=== PATIENT | female | born 1960 | race Caucasian/White ===

== ENCOUNTER 2017-12-15 17:03 | Emergency (ER) | payer BC ==
--- NOTE | 2017-12-15 18:49 | EDM.PDOC ---
ED HPI GENERAL MEDICAL PROBLEM - General Chief Complaint: Head Injury Stated Complaint: HIGH BP, FELL AND HIT HEAD Time Seen by Provider: 12/15/17 17:49 Source of Information: Reports: Patient, Family History Limitations: Reports: No Limitations - History of Present Illness INITIAL COMMENTS - FREE TEXT/NARRATIVE: 57 y.o.w.f came to the clinic after she fell against a wall while carrying furniture. No LOC but severe pain at her right forehead. No N/V/D or ant other acute medical issues. Pt is on Lisinopril 20 mg daily. She took her meds in am. Pt was seen initially in the clinic and transferred to the ed due to a SBP > 190. 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: Reports: NSAIDS - Related Data Allergies Allergy/AdvReac Type Severity Reaction Status Date / Time Penicillins Allergy Rash Verified 12/15/17 17:54 Home Meds: Home Meds Lisinopril/Hydrochlorothiazide [Lisinopril-Hctz 10-12.5 mg Tab] 1 each PO DAILY 12/15/17 [History] Past Medical History 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: Reports: 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: Musculoskeletal History: Reports: Other (See Below) Other Musculoskeletal History: scoliosis - Past Surgical History HEENT Surgical History: Reports: Tonsillectomy Female Surgical History: Reports: Section Musculoskeletal Surgical History: Reports: Other (See Below) Other Musculoskeletal Surgeries/Procedures:: Rob saúl in back for scoliosis Social & Family History - Tobacco Use Smoking Status *Q: Current Every Day Smoker Years of Tobacco use: 20 Packs/Tins Daily: 0.3 - Caffeine Use Caffeine Use: Reports: Soda - Recreational Drug Use Recreational Drug Use: No ED ROS GENERAL - Review of Systems Review Of Systems: See Below Constitutional: Reports: No Symptoms HEENT: Reports: Other (H/A) Respiratory: Reports: No Symptoms Cardiovascular: Reports: No Symptoms Endocrine: Reports: No Symptoms GI/Abdominal: Reports: No Symptoms : Reports: No Symptoms Musculoskeletal: Reports: Other (headache) Skin: Reports: No Symptoms Neurological: Reports: No Symptoms Psychiatric: Reports: No Symptoms Hematologic/Lymphatic: Reports: No Symptoms Immunologic: Reports: No Symptoms ED EXAM, HEAD INJURY - Physical Exam Exam: See Below Exam Limited By: No Limitations General Appearance: Alert, WD/WN, Mild Distress Head: Normocephalic, Scalp Tenderness Eyes: Bilateral Eye: Normal Inspection Ears: Normal External Exam, Normal Canal Nose: Normal Inspection, Normal Mucousa, No Blood Throat/Mouth: Normal Inspection, Normal Lips, Normal Gums, Normal Voice, No Airway Compromise Neck: Non-Tender, Full Range of Motion, Normal Alignment, Normal Inspection Respiratory: No Respiratory Distress, Lungs Clear, Normal Breath Sounds, No Accessory Muscle Use, Chest Non-Tender Cardiovascular: Normal Peripheral Pulses, Regular Rate, Rhythm, No Edema, No Gallop, No Murmur, No Rub GI/Abdominal Exam: Normal Bowel Sounds, Soft, Non-Tender, No Organomegaly (Female) Exam: Deferred Rectal (Female) Exam: Deferred Back Exam: Normal Inspection, Full Range of Motion Extremities: Normal Inspection, Normal Range of Motion, Non-Tender, No Pedal Edema, Normal Capillary Refill 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 No LOC but severe pain at her right forehead. No N/V/D or ant other acute medical issues. Pt is on Lisinopril 20 mg daily. She took her meds in am. Pt was seen initially in the clinic and transferred to the ed due to a SBP > 190. On arrivel, Her BP was 155/86 RR 17 Puls 74 Pulse ox 97% on RA Temp 36.9 PE: WNWD w f with H/A after a minor trauma. Imaging: CT head: NAD, small foci of hypoattenuation both frontal lobes, possible nonspecific Impression: Hypertension, Tension Headache Tx: ICE, Motrin SALESPERSON PETS AND PET SUPPLIES, Pt will take an extra Lisinopril at home Reexam: Improved BP on D/C 160/67 Plan: D/C with instructions. Last Recorded V/S: Last Vital Signs Temp 36.6 C 12/15/17 17:49 Pulse 73 12/15/17 17:49 Resp 17 12/15/17 17:49 BP 155/88 H 12/15/17 17:49 Pulse Ox 97 12/15/17 17:49 - Orders/Labs/Meds Orders: Active Orders 24 hr Category Date Time Status Cooling Warming Measures [RC] ASDIRECTED Care 12/15/17 17:16 Active Head wo Cont [CT] Stat Exams 12/15/17 17:16 Taken Ice Bag [Ice Therapy] [OM.PC] Routine Oth 12/15/17 17:16 Ordered Departure - Departure Time of Disposition: 18:49 Disposition: Home, Self-Care 01 Condition: Good Clinical Impression: Tension headache, HTN (hypertension) - Discharge Information Instructions: Head Injury, Adult, Hypertension Referrals: Gabbie Torres, [facility] [Primary Care Provider] - Forms: ED Department Discharge Additional Instructions: Please take Motrin for pain, apply ice to the affected area, please take Lisinopril twice daily and see your PMD this for BP check and BPmeds adjustment. Please come back to the ed if your symptoms get worse acutely - My Orders Last 24 Hours: My Active Orders 12/15/17 17:16 Cooling Warming Measures [RC] ASDIRECTED Head wo Cont [CT] Stat Ice Bag [Ice Therapy] [OM.PC] Routine - Assessment/Plan Last 24 Hours: My Active Orders 12/15/17 17:16 Cooling Warming Measures [RC] ASDIRECTED Head wo Cont [CT] Stat Ice Bag [Ice Therapy] [OM.PC] Routine
== END 2017-12-15 19:01 | disposition home or self-care (01) ==
LOC: FB.ED 17:03
DX: G44.209 Tension-type headache, unspecified, not intractable (principal); I10 Essential (primary) hypertension; F17.210 Nicotine dependence, cigarettes, uncomplicated; Z88.0 Allergy status to penicillin
CPT/HCPCS: 70450; 99283

== ENCOUNTER 2020-10-31 19:22 | Emergency (ER) | payer BC ==
[2020-10-31] MEDS ORDERED: Acetaminophen/oxyCODONE 325-5 MG Tab PO ONE (19:23)
[2020-10-31] MEDS ORDERED: Ondansetron 4 MG Tab.DIS PO ONE (19:23)
[2020-10-31] MEDS ORDERED: Sodium Chloride 0.9% 1,000 ML IV ONE (19:38)
[2020-10-31] MEDS ORDERED: Ondansetron 4 MG/2 ML SDV IVPUSH ONE (19:38)
[2020-10-31] MEDS ORDERED: Ketorolac 30 MG/ML SDV IVPUSH ONE (19:38)
--- NOTE | 2020-10-31 19:45 | EDM.PDOC ---
ED HPI GENERAL MEDICAL PROBLEM - General Stated Complaint: KIDNEY STONE Time Seen by Provider: 10/31/20 19:43 Source of Information: Reports: Patient, RN Notes Reviewed History Limitations: Reports: No Limitations - History of Present Illness INITIAL COMMENTS - FREE TEXT/NARRATIVE: Nazia complains of right flank pain x 3 days. Was seen in [place] ED and treated overnight for a kidney stone. 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 GI/Abdominal: Reports: Diarrhea, Vomiting ED EXAM, RENAL/ - Physical Exam Exam: See Below Exam Limited By: No Limitations General Appearance: Alert, WD/WN, No Apparent Distress Respiratory/Chest: No Respiratory Distress Cardiovascular: Normal Peripheral Pulses GI/Abdominal: Normal Bowel Sounds, Soft, Tender (RLQ) Back Exam: Normal Inspection Course - Vital Signs Last Recorded V/S: Last Vital Signs Temp 98.2 F 10/31/20 19:30 Pulse 82 10/31/20 19:30 Resp 18 10/31/20 19:30 BP 141/86 H 10/31/20 19:30 Pulse Ox 98 10/31/20 19:30 - Orders/Labs/Meds Orders: Active Orders 24 hr Category Date Time Status Abdomen Pelvis wo Cont [CT] Stat Exams 10/31/20 20:52 Taken Metoclopramide [Reglan] Med 10/31/20 22:35 Once 10 mg IVPUSH ONETIME ONE Labs: Laboratory Tests 10/31/20 10/31/20 10/31/20 Range/Units 19:50 19:50 21:15 WBC 11.9 H (3.0-10.3) x10-3/uL RBC 4.36 (3.60-5.20) x10(6)uL Hgb 13.5 (11.4-15.5) g/dL Hct 41.0 (34.2-48.2) % MCV 93.9 (76.7-100.5) fL MCH 31.0 (23.9-33.9) pg MCHC 33.0 (31.9-34.8) g/dL RDW 12.7 (12.3-16.5) % Plt Count 238 (151-488) x10(3)uL MPV 8.3 (7.1-12.4) fL Neut % (Auto) 83.0 H (30.8-76.2) % Lymph % (Auto) 10.1 L (18.4-52.1) % Amite % (Auto) 5.5 (4.4-15.7) % Eos % (Auto) 1.0 (0.6-8.1) % Baso % (Auto) 0.4 (0.2-1.5) % Neut # (Auto) 9.8 H (1.5-6.3) x10-3/uL Lymph # (Auto) 1.2 (1.0-4.4) x10-3/uL Amite # (Auto) 0.7 (0.3-1.0) x10-3/uL Eos # (Auto) 0.1 (0.0-0.8) x10-3/uL Baso # (Auto) 0.0 (0.0-0.1) x10-3/uL Sodium 142 (135-145) mmol/L Potassium 3.8 (3.5-5.3) mmol/L Chloride 103 (100-110) mmol/L Carbon Dioxide 25 (21-32) mmol/L BUN 17 (7-18) mg/dL Creatinine 1.2 H (0.55-1.02) mg/dL Est Cr Clr Drug Dosing 47.84 mL/min Estimated GFR (MDRD) 46 L (>60) BUN/Creatinine Ratio 14.2 (9-20) Glucose 94 (80-116) mg/dL Calcium 7.8 L (8.6-10.2) mg/dL Urine Color Yellow (YELLOW) Urine Appearance Clear (CLEAR) Urine pH 5.0 (5.0-6.5) Ur Specific Clarence 1.020 (1.010-1.025) Urine Protein Negative (NEGATIVE) mg/dL Urine Glucose (UA) Normal (NORMAL) mg/dL Urine Ketones 50 H (NEGATIVE) mg/dL Urine Occult Blood Negative (NEGATIVE) Urine Nitrite Negative (NEGATIVE) Urine Bilirubin Negative (NEGATIVE) Urine Urobilinogen Normal (NEGATIVE) mg/dL Ur Leukocyte Esterase Negative (NEGATIVE) Urine RBC 0-5 (0-5) Urine WBC 0-5 (0-5) Ur Squamous Epith Cells Occasional (NS,R,O) Urine Bacteria Rare H (NS) Meds: Medications Discontinued Medications Generic Name Dose Route Start Last Admin Trade Name Freq PRN Reason Stop Dose Admin Hydromorphone HCl 2 mg 10/31/20 20:52 10/31/20 21:15 Hydromorphone 2 Mg/Ml Sdv IVPUSH 10/31/20 20:53 2 mg ONETIME ONE Administration Sodium Chloride 1,000 mls @ 999 mls/hr 10/31/20 19:38 10/31/20 19:45 Normal Saline IV 10/31/20 20:38 999 mls/hr .BOLUS ONE Administration Ketorolac Tromethamine 30 mg 10/31/20 19:38 10/31/20 19:52 Ketorolac 30 Mg/Ml Sdv IVPUSH 10/31/20 19:39 30 mg ONETIME ONE Administration Ondansetron HCl 8 mg 10/31/20 19:38 10/31/20 19:54 Ondansetron 4 Mg/2 Ml Sdv IVPUSH 10/31/20 19:39 8 mg ONETIME ONE Administration Departure - Departure Time of Disposition: 22:36 Disposition: Home, Self-Care 01 Clinical Impression: Kidney stone, Calcium urolithiasis - Discharge Information Referrals: Gabbie Torres NP [Primary Care Provider] - Sepsis Event Note (ED) - Focused Exam Vital Signs: Vital Signs Temp Pulse Resp BP Pulse Ox 10/31/20 19:30 98.2 F 82 18 141/86 H 98 - Problem List & Annotations (1) Calcium urolithiasis SNOMED Code(s): 25972009 Code(s): N20.9 - URINARY CALCULUS, UNSPECIFIED Status: Acute Current Visit: No (2) Colitis SNOMED Code(s): 84108550 Code(s): K52.9 - NONINFECTIVE GASTROENTERITIS AND COLITIS, UNSPECIFIED Status: Acute Current Visit: Yes (3) Kidney stone SNOMED Code(s): 18449212 Code(s): N20.0 - CALCULUS OF KIDNEY Status: Acute Current Visit: Yes - Problem List Review Problem List Initiated/Reviewed/Updated: Yes - My Orders Last 24 Hours: My Active Orders 10/31/20 20:52 Abdomen Pelvis wo Cont [CT] Stat 10/31/20 22:35 Metoclopramide [Reglan] 10 mg IVPUSH ONETIME ONE - Assessment/Plan Last 24 Hours: My Active Orders 10/31/20 20:52 Abdomen Pelvis wo Cont [CT] Stat 10/31/20 22:35 Metoclopramide [Reglan] 10 mg IVPUSH ONETIME ONE Plan: I reviewed her CT from 10/29 that showed a 2 mm kidney stone at the right UPJ,some hydronephrosis.CT was repated today, shwed new stone 2-3 mm in addition to the previous one. I have given her 1 L of NS,Toradol ,Dilaudid and Reglan IV. DC home on Percocet.See PCP tomorrow,discuss Urology referral.
[2020-10-31] MEDS ORDERED: HYDROmorphone 2 MG/ML SDV IVPUSH ONE (20:52)
[2020-10-31] MEDS ORDERED: Metoclopramide 10 MG/2 ML SDV IVPUSH ONE (22:35)
== END 2020-10-31 23:45 | disposition home or self-care (01) ==
LOC: FB.ED 19:22
DX: N13.2 Hydronephrosis with renal and ureteral calculous obstruction (principal); I10 Essential (primary) hypertension; Z88.0 Allergy status to penicillin; Z79.899 Other long term (current) drug therapy
CPT/HCPCS: 36415; 74176; 80048; 81001; 85025; 96374; 96375; 99284-25; A9270-GY; J1170; J1885; J2405; J2765; J7030

== ENCOUNTER 2022-09-13 20:58 | Observation (INO) | payer BC ==
[2022-09-13 21:46] LABS: ESTIMATED GFR 99 mL/min (>60)
[2022-09-13] MEDS ORDERED: Sodium Chloride 0.9% 1,000 ML IV ONE (21:59)
[2022-09-13] MEDS ORDERED: Ciprofloxacin in D5W 400 MG in Premix Bag 1 BAG IV SCH ×2 (22:30)
[2022-09-13] MEDS ORDERED: Magnesium Sulfate/Water 2 GM in Premix Bag 1 BAG IV ONE (22:51)
[2022-09-14] MEDS ORDERED: Sodium Chloride 0.9% 1,000 ML IV ONE (00:40)
[2022-09-14] MEDS ORDERED: Ondansetron 4 MG/2 ML SDV IVPUSH ONE (00:40)
[2022-09-14] MEDS ORDERED: Ondansetron 4 MG/2 ML SDV IVPUSH PRN (01:13)
[2022-09-14] MEDS ORDERED: Potassium Chloride 20 MEQ Tab.ER PO ONE (01:17)
[2022-09-14] MEDS ORDERED: Sodium Chloride 0.9% 1,000 ML IV SCH (02:00)
[2022-09-14 06:44] LABS: ESTIMATED GFR 103 mL/min (>60)
== END 2022-09-14 11:02 | disposition home or self-care (01) ==
LOC: FB.ED 20:58 → FB.MS 09-14 01:04
PROVIDERS: ADMIT Family Medicine; ATTEND Family Medicine
DX: A41.9 Sepsis, unspecified organism (principal); R11.2 Nausea with vomiting, unspecified; R82.71 Bacteriuria; I10 Essential (primary) hypertension; R10.84 Generalized abdominal pain; M19.90 Unspecified osteoarthritis, unspecified site; F17.210 Nicotine dependence, cigarettes, uncomplicated; Z88.0 Allergy status to penicillin; Z79.899 Other long term (current) drug therapy; Z98.890 Other specified postprocedural states
CPT/HCPCS: 36415; 71046; 80048; 80053; 81001; 83605; 83735; 85025; 86140; 87040; 87086; 87088; 87186; 96365; 96366; 96367; 96375; 99222; 99238; 99284; A9270; G0378; J0744; J2405; J3475; J7030

== ENCOUNTER 2023-06-22 14:41 | Emergency (ER) | payer BC ==
[2023-06-22] MEDS ORDERED: Sodium Chloride 0.9% 10 ML Syringe FLUSH PRN (15:01)
[2023-06-22 15:12] LABS: BASOPHILS ABSOLUTE AUTO 0.1 x10-3/uL (0.0-0.1); BASOPHILS PERCENT AUTO 0.5 % (0.2-1.5); EOSINOPHILS ABSOLUTE AUTO 0.1 x10-3/uL (0.0-0.8); EOSINOPHILS PERCENT AUTO 0.7 % (0.6-8.1); HEMATOCRIT 45.3 % (34.2-48.2); HEMOGLOBIN 15.1 g/dL (11.4-15.5); LYMPHOCYTES ABSOLUTE AUTO 1.4 x10-3/uL (1.0-4.4); LYMPHOCYTES PERCENT AUTO 11.5 % (18.4-52.1); MEAN CORPUSCULAR HEMOGLOBIN 30.2 pg (23.9-33.9); MEAN CORPUSCULAR HGB CONC 33.3 g/dL (31.9-34.8); MEAN CORPUSCULAR VOLUME 90.6 fL (76.7-100.5); MEAN PLATELET VOLUME 7.6 fL (7.1-12.4); MONOCYTES ABSOLUTE AUTO 0.9 x10-3/uL (0.3-1.0); MONOCYTES PERCENT AUTO 7.6 % (4.4-15.7); NEUTROPHILS ABSOLUTE AUTO 9.9 x10-3/uL (1.5-6.3); NEUTROPHILS PERCENT AUTO 79.7 % (30.8-76.2); PLATELET COUNT,PLT 321 x10(3)uL (151-488); RED CELL DISTRIBUTION WIDTH 13.5 % (12.3-16.5); WHITE BLOOD CELL COUNT,WBC 12.4 x10-3/uL (3.0-10.3)
[2023-06-22 15:14] LABS: BLOOD UREA NITROGEN,BUN 20 mg/dL (7-18); CALCIUM 9.3 mg/dL (8.6-10.2); CARBON DIOXIDE,CO2 28 mmol/L (21-32); CHLORIDE,CL 101 mmol/L (100-110); EST CRCL DRUG DOSING (CG) 57.45 mL/min; ESTIMATED GFR 64 mL/min (>60); GLUCOSE RANDOM 98 mg/dL (80-116); POTASSIUM,K 3.3 mmol/L (3.5-5.3); SODIUM,NA 135 mmol/L (135-145)
[2023-06-22] MEDS ORDERED: Sodium Chloride 0.9% 1,000 ML IV SCH (15:30)
[2023-06-22 16:36] LABS: BILIRUBIN,URINE NEGATIVE (NEGATIVE); GLUCOSE,URINE NORMAL (NORMAL); KETONES,URINE 50 mg/dL (NEGATIVE); LEUKOCYTE ESTERASE,URINE NEGATIVE (NEGATIVE); NITRITE,URINE NEGATIVE (NEGATIVE); OCCULT BLOOD,URINE LARGE (NEGATIVE); PROTEIN,URINE NEGATIVE (NEGATIVE); UROBILINOGEN,URINE NORMAL (NEGATIVE)
[2023-06-22 16:38] LABS: APPEARANCE,URINE SLIGHTLY CLOUDY (CLEAR); BACTERIA,URINE FEW (NS); COLOR,URINE YELLOW (YELLOW); SQUAMOUS EPITHELIAL CELLS,UR FEW (NS,R,O); WBC,URINE 0-5 (0-5)
== END 2023-06-22 17:04 | disposition home or self-care (01) ==
LOC: FB.ED 14:41
DX: N13.2 Hydronephrosis with renal and ureteral calculous obstruction (principal); E86.0 Dehydration; I10 Essential (primary) hypertension; F17.210 Nicotine dependence, cigarettes, uncomplicated; Z79.899 Other long term (current) drug therapy; Z88.0 Allergy status to penicillin; Z91.013 Allergy to seafood
CPT/HCPCS: 74176; 80048; 81001; 85025; 96360; 99284; 99284-25; J3490; J7030